=== PATIENT | male | born 1965 | race Two or more races ===

== ENCOUNTER 2024-01-24 08:14 | Emergency (ER) | payer SELFPAY ==
[2024-01-24 08:20] VITALS: BP 177/113; PULSE 88; RESP 18; TEMP 36.8; O2SAT 96; BMI 35.2
[2024-01-24 08:24] VITALS: BP 170/100
--- NOTE | 2024-01-24 08:42 | ED_ITS ---
HPI - General Adult General Chief complaint: Dizziness Stated complaint: DIZZYDAVE Time Seen by Provider: 01/24/24 08:34 Source: patient Mode of arrival: walk-in History of Present Illness HPI narrative: The patient have history of hypertension came to the ER requesting refill on his blood pressure medication he last took it 3-month ago and he does not remember the name of it ,the patient denies any chest pain nausea vomiting or dizziness. He mentioned that he has been on the road at least for 9-month. Related Data Previous Rx's Medication Instructions Recorded amlodipine 5 mg tablet 5 mg PO DAILY #30 tabs 01/24/24 Allergies Allergy/AdvReac Type Severity Reaction Status Date / Time No Known Drug Allergies Allergy Verified 01/24/24 08:22 Review of Systems ROS Status of ROS 10 or more systems reviewed and unremark able except as noted in history and below Exam Narrative Exam Narrative: Nurses notes and vital signs reviewed and patient is not hypoxic. General: Well-appearing and in no apparent distress. Skin: Warm, dry, no pallor noted. No rash. Head: Normocephalic, atraumatic. Neck: Supple, non-tender. Eye: Pupils are equal, round and EOMI. No scleral icterus. Ears, Nose, Mouth, and Throat: TM are clear, no nasal mucosal hypertrophy. Oral mucosa is moist, no posterior oropharynx erythema, uvula is mid-line Cardiovascular: Regular Rate and Rhythm without murmur, gallop or rub. Respiratory: No accessory muscle use or respiratory distress. Lungs are clear to auscultation, no wheezing, rales or rhonchi Chest Wall: no tenderness Back: No midline thoracic or lumbar vertebral tenderness. No CVA tenderness Musculoskeletal: normal ROM, no calf or popliteal tenderness, no lower extremity edema/swelling GI: Abdomen is soft, non-distended. Normal bowel sounds. No masses appreciated. No tenderness to palpation. No rebound, guarding, or rigidity noted. Neurological: A&O x4. No cranial nerve dysfunction observed. No truncal ataxia. Moves all extremities. Sensation intact. Psychiatric: Cooperative and interactive. Normal mood and affect. Constitutional Vital Signs, click to edit/add: Last Vital Signs Temp 98.2 F 01/24/24 08:20 Pulse 88 01/24/24 08:20 Resp 18 01/24/24 08:20 BP 170/100 H 01/24/24 08:24 Pulse Ox 96 01/24/24 08:20 O2 Del Method Room Air 01/24/24 08:20 Course Vital Signs Vital signs: Vital Signs Temperature 98.2 F 01/24/24 08:20 Pulse Rate 88 01/24/24 08:20 Respiratory Rate 18 01/24/24 08:20 Blood Pressure 177/113 H 01/24/24 08:20 Pulse Oximetry 96 01/24/24 08:20 Oxygen Delivery Method Room Air 01/24/24 08:20 Temperature 98.2 F 01/24/24 08:20 Pulse Rate 88 01/24/24 08:20 Respiratory Rate 18 01/24/24 08:20 Blood Pressure 170/100 H 01/24/24 08:24 Pulse Oximetry 96 01/24/24 08:20 Oxygen Delivery Method Room Air 01/24/24 08:20 Medical Decision Making MDM Narrative Medical decision making narrative: The patient obviously have hypertension as he mentioned and he denies any active symptoms he just needs his blood pressure medications to be resumed I offered the patient to do a blood workup for him which she does not want any blood workup he just needs his medication. He could not give me the name of the medication but he mentioned that it was a low-dose and daily and I started him on amlodipine 5 mg. I advised him to check his blood pressure regularly and offered him a prescription for blood pressure machine and he denied that mentioned that he will just measure it and [facility]. The patient also instructed that he need to follow-up with a primary care doctor during this time he is traveling and he understands. In case of any symptoms the patient will be coming back to the ER. The patient is to follow up with primary care physician in next 2-3 days or to return to the emergency department should any of the signs or symptoms worsen or new symptoms develop. The patient agrees with the following Diagnosis and Treatment plan and the patient will be discharged home. Discharge Plan Discharge Chief Complaint: Dizziness Clinical Impression: Benign essential HTN Patient Disposition: Home, Self-Care Time of Disposition Decision: 08:41 Condition: Good Prescriptions / Home Meds: New amlodipine 5 mg tablet 5 mg PO DAILY Qty: 30 0RF Instructions: Hypertension (ED) Stand Alone Forms: Portal Instructions Discharge Date/Time: 01/24/24 08:50
== END 2024-01-24 08:50 | disposition home or self-care (01) ==
PROVIDERS: Emergency Provider Emergency Medicine
DX: I10 Essential (primary) hypertension (principal)
CPT/HCPCS: 99283